=== PATIENT | male | born 1985 | race Caucasian/White ===

== ENCOUNTER 2016-12-14 02:32 | Emergency (ER) | payer MEDICAID ==
[2016-12-14 04:20] LABS: BASOPHIL % 0.4 % (0-2); PLATELET COUNT 259 x10^3mcL (130-400); RED CELL DISTRIBUTION WIDTH 12.8 % (11.5-14.5)
[2016-12-14 04:21] LABS: CALCIUM 8.7 mg/dL (8.5-10.1); CARBON DIOXIDE 27.6 mmol/L (21-32); CHLORIDE SERUM 105 mmol/L (98-107); GFR1 > 60 mL/min; GLUCOSE SERUM 98 mg/dL (74-106); POTASSIUM SERUM 4.1 mmol/L (3.5-5.1); SODIUM SERUM 139 mmol/L (136-145)
[2016-12-14 04:28] LABS: ALBUMIN 4.6 g/dL (3.4-5.0); ALKALINE PHOSPHATASE 48 U/L (46-116); ALT/SGPT 20 U/L (16-63); AST/SGOT 21 U/L (15-37); BILIRUBIN TOTAL 0.74 mg/dL (0.20-1.00); TOTAL PROTEIN, SERUM 7.9 g/dL (6.4-8.2)
[2016-12-14 08:13] VITALS: BP 148/88
== END 2016-12-14 08:13 | disposition short-term general hospital (02) ==
LOC: ED 02:32
PROVIDERS: Emergency Medicine
PROC: 3E023NZ Introduction of Analgesics, Hypnotics, Sedatives into Muscle, Percutaneous Approach (ICD-10-PCS; principal; 2016-12-14)
PROC: 3E033NZ Introduction of Analgesics, Hypnotics, Sedatives into Peripheral Vein, Percutaneous Approach (ICD-10-PCS; 2016-12-14)
PROC: 3E033GC Introduction of Other Therapeutic Substance into Peripheral Vein, Percutaneous Approach (ICD-10-PCS; 2016-12-14)
PROC: BW28ZZZ Computerized Tomography (CT Scan) of Head (ICD-10-PCS; 2016-12-14)
PROC: BN25ZZZ Computerized Tomography (CT Scan) of Facial Bones (ICD-10-PCS; 2016-12-14)
PROC: BN26ZZZ Computerized Tomography (CT Scan) of Mandible (ICD-10-PCS; 2016-12-14)
PROC: BR20ZZZ Computerized Tomography (CT Scan) of Cervical Spine (ICD-10-PCS; 2016-12-14)
PROC: BW251ZZ Computerized Tomography (CT Scan) of Chest, Abdomen and Pelvis using Low Osmolar Contrast (ICD-10-PCS; 2016-12-14)
DX: S82.301A Unspecified fracture of lower end of right tibia, initial encounter for closed fracture (principal); V09.20XA Pedestrian injured in traffic accident involving unspecified motor vehicles, initial encounter; Y92.9 Unspecified place or not applicable
CPT/HCPCS: J1170; J2250; J2270; J3490; Q0092; Q9967

== ENCOUNTER 2018-03-18 21:50 | Emergency (ER) | payer OTHER ==
[~2018-03-18] VITALS: Ht 193 cm; Wt 108.9 kg
[2018-03-18 22:00] VITALS: Ht 193 cm; Wt 108.9 kg
[2018-03-18 23:42] VITALS: BP 148/97
== END 2018-03-18 23:42 | disposition home or self-care (01) ==
LOC: ED 21:50
DX: J02.9 Acute pharyngitis, unspecified (principal)

== ENCOUNTER 2018-09-25 22:15 | Emergency (ER) | payer OTHER ==
[~2018-09-25] VITALS: Ht 193 cm; Wt 105.7 kg
[2018-09-25 22:18] VITALS: Ht 193 cm; Wt 105.7 kg
[2018-09-26 03:10] VITALS: BP 149/105
== END 2018-09-26 01:00 | disposition home or self-care (01) ==
LOC: ED 22:15
DX: S93.401A Sprain of unspecified ligament of right ankle, initial encounter (principal); S80.811A Abrasion, right lower leg, initial encounter; X50.1XXA Overexertion from prolonged static or awkward postures, initial encounter; Y93.01 Activity, walking, marching and hiking; Y92.89 Other specified places as the place of occurrence of the external cause; Y99.8 Other external cause status; R03.0 Elevated blood-pressure reading, without diagnosis of hypertension

== ENCOUNTER 2018-12-09 22:55 | Emergency (ER) | payer OTHER ==
[~2018-12-09] VITALS: Ht 195.6 cm; Wt 108.9 kg
[2018-12-09 23:07] VITALS: Ht 195.6 cm; Wt 108.9 kg
[2018-12-10 04:46] VITALS: BP 125/85
== END 2018-12-10 04:46 | disposition home or self-care (01) ==
LOC: ED 22:55
DX: B34.9 Viral infection, unspecified (principal); R11.2 Nausea with vomiting, unspecified; J02.9 Acute pharyngitis, unspecified
CPT/HCPCS: 87804

== ENCOUNTER 2019-01-05 13:36 | Emergency (ER) | payer OTHER ==
[~2019-01-05] VITALS: Ht 193 cm; Wt 112.0 kg
[2019-01-05 13:44] VITALS: Ht 193 cm; Wt 112.0 kg
[2019-01-05 16:20] VITALS: BP 138/89
== END 2019-01-05 16:20 | disposition home or self-care (01) ==
LOC: ED 13:36
DX: S16.1XXA Strain of muscle, fascia and tendon at neck level, initial encounter (principal); R42 Dizziness and giddiness; R11.0 Nausea; X58.XXXA Exposure to other specified factors, initial encounter; Y93.89 Activity, other specified; Y92.89 Other specified places as the place of occurrence of the external cause; Y99.8 Other external cause status
CPT/HCPCS: Q0092

== ENCOUNTER 2019-11-09 22:26 | Emergency (ER) | payer OTHER ==
[~2019-11-09] VITALS: Ht 193 cm; Wt 103.9 kg
[2019-11-09 22:29] VITALS: Ht 193 cm; Wt 103.9 kg
[2019-11-10 00:28] VITALS: BP 166/71
== END 2019-11-10 00:28 | disposition home or self-care (01) ==
LOC: ED 22:26
DX: S01.81XA Laceration without foreign body of other part of head, initial encounter (principal); W22.8XXA Striking against or struck by other objects, initial encounter; Y93.89 Activity, other specified; Y92.89 Other specified places as the place of occurrence of the external cause; Y99.8 Other external cause status

== ENCOUNTER 2019-11-15 14:57 | Emergency (ER) | payer OTHER ==
[~2019-11-15] VITALS: Ht 193 cm; Wt 102.5 kg
[2019-11-15 15:13] VITALS: BP 150/79; Ht 193 cm; Wt 102.5 kg
== END 2019-11-15 15:36 | disposition home or self-care (01) ==
LOC: ED 14:57
DX: S01.81XD Laceration without foreign body of other part of head, subsequent encounter (principal); X58.XXXD Exposure to other specified factors, subsequent encounter